=== PATIENT | female | born 1980 | race Caucasian/White ===

== ENCOUNTER → 2020-01-03 10:00 | Outpatient (CLI) | payer BC, SELFPAY ==
--- NOTE | 2020-01-03 10:04 | MM_ITS ---
PROCEDURE: MM DIG SCREENING MAMM BI W/CAD Digital Breast Tomosynthesis Included CLINICAL INDICATION: SCREENING There is a history of breast cancer patient's maternal and paternal grand aunt COMPARISON: This is a baseline screening exam, patient without complaints TECHNIQUE: Standard CC and MLO images and 3D Tomosynthesis was obtained. R2 CAD reviewed. FINDINGS: Prominent diffuse somewhat heterogenic fibroglandular densities are seen throughout both breasts. There is a possible asymmetric density deep to the nipple right breast. Nabor images of this lesion are somewhat indeterminate and I believe the patient should return for spot compression views and ultrasound for additional evaluation. There are no suspicious microcalcifications. IMPRESSION: Moderate heterogenic breast density with possible asymmetric lesion right breast BI-RAD Category: 0 Need Additional Imaging Evaluation FOLLOW-UP: IMM Immediate Follow-up Recommended (A letter has been sent to the patient regarding results of the study.) Dictated by: Dr. Armani Nolan MD 01/05/2020 10:06 Dr. Armani Nolan MD in [place] 01/05/2020 10:06
== END ==
PROVIDERS: PCP Family Medicine; Visit Provider Physician Assistant
DX: Z12.31 Encounter for screening mammogram for malignant neoplasm of breast (principal)
CPT/HCPCS: 77063; 77067

== ENCOUNTER → 2020-01-13 14:16 | Outpatient (CLI) | payer BC, SELFPAY ==
--- NOTE | 2020-01-13 14:24 | MM_ITS ---
PROCEDURE: MM DIG MAMM DX UNILAT RT CAD Digital Breast Tomosynthesis Included CLINICAL INDICATION: ABN MAMM COMPARISON: MG MM DIG SCREENING MAMM BI W/CAD from 01/03/2020 US US BREAST RT COMPLETE from 01/13/2020 TECHNIQUE: Standard CC and MLO images and 3D Tomosynthesis was obtained. R2 CAD reviewed. FINDINGS: No heterogenic fibroglandular densities are seen in the subareolar regions and central portions of the breast. The possible new lesion seen on recent mammogram of 01/03/2020 does not completely press out. Ultrasound performed the same date showed a benign-appearing cystic lesion at the 12 o'clock position mid breast measuring 0.6 by point by 0.5 cm with good acoustic enhancement and this appears to correspond in size and location to the density in question. Ultrasound exam showed additional benign-appearing cysts within the breast. IMPRESSION: Heterogenic breast density with ultrasound confirmation of benign-appearing cyst at the site of the asymmetric density in question feel no additional evaluation is indicated at this time BI-RAD Category: 2 Benign Finding(s) FOLLOW-UP: 1YR 1 Year Follow-up (A letter has been sent to the patient regarding results of the study.) Dictated by: Dr. Armani Nolan MD 01/17/2020 09:57 Dr. Armani Nolan MD in [place] 01/17/2020 09:57
--- NOTE | 2020-01-13 14:24 | US_ITS ---
PROCEDURE: US BREAST RT COMPLETE CLINICAL INDICATION: ABN MAMM COMPARISON: US BR US BREAST-RT COMPLETE W/AXILLA from 02/02/2015 FINDINGS: There is a small well-defined hypoechoic cystic lesion mid breast at the 12 o'clock position measuring 0.5 by 0.6 x 0.4 cm likely accounting for the the in question. Previous ultrasound 02/02/2015 showed a cystic lesion 12 o'clock position which was larger and showed partial septation and there likely has been interval partial decompression of this previously seen cyst. There is an additional oval hypoechoic cystic lesion at the 10 o'clock position outer breast with internal septations and debris measuring 1.4 by 1.3 x 0.4 cm and this is likely a complex cyst. There is a mildly dilated duct subareolar region. There are couple normal appearing nodes in the axilla. IMPRESSION: Benign-appearing cystic lesions as described above and I feel no additional evaluation is indicated Dictated by: Dr. Armani Nolan MD 01/17/2020 10:00 Dr. Armani Nolan MD in [place] 01/17/2020 10:00
== END ==
PROVIDERS: PCP Family Medicine; Visit Provider Family Medicine
DX: R92.8 Other abnormal and inconclusive findings on diagnostic imaging of breast (principal)
CPT/HCPCS: 76641; 77061; 77065; G0279

== ENCOUNTER → 2020-02-04 17:01 | Outpatient (CLI) | payer BC, SELFPAY ==
[2020-02-04 17:30] LABS: Basophils # 0.1 K/mm3 (0-0.2); Basophils % 0.6 % (0.1-2.0); Eosinophils # 0.2 K/mm3 (0.0-0.4); Eosinophils % 2.3 % (0.1-12.0); Hematocrit 41.4 % (37.0-47.0); Hemoglobin 14.6 g/dL (12.2-16.2); Lymphocytes # 2.4 K/mm3 (0.7-4.5); Lymphocytes % 24.3 % (10-50); Mean Corpuscular HGB Conc 35.2 g/dL (31.8-35.4); Mean Corpuscular Hemoglobin 30.3 pg (27.0-31.2); Mean Corpuscular Volume 86.2 fl (81-99); Mean Platelet Volume 7.5 fl (7.4-10.4); Monocytes # 0.4 K/mm3 (0.1-1.0); Monocytes % 3.8 % (1.7-9.3); Neutrophils # 6.8 K/mm3 (1.8-7.8); Neutrophils % 68.9 % (37.0-80.0); Platelet Count 267 K/mm3 (142-424); Red Cell Distribution Width 13.6 % (11.5-17.5); White Blood Count 9.9 K/mm3 (4.8-10.8)
[2020-02-04 17:54] LABS: Alanine Aminotransferase 15 U/L (12-78); Albumin Level 4.9 g/dl (3.5-5.0); Albumin/Globulin Ratio 1.8 (1.1-1.8); Alkaline Phosphatase 75 U/L (38-126); Aspartate Amino Transferase 21 U/L (14-36); Bilirubin,Total 0.6 mg/dl (0.2-1.3); Blood Urea Nitrogen 12 mg/dl (7-17); Carbon Dioxide 25 mmol/L (22.0-30.0); Chloride 102 mmol/L (98-107); Estimated Glomerular Filt Rate 79 ml/min (>60); GFR (African American) 96 ML/MIN (>60); Globulin 2.8 g/dL (1.3-3.2); Glucose 124 mg/dl (74-100); Phosphorous 4.2 mg/dl (2.5-4.5); Sodium 141 mmol/L (136-145); Total Protein,Serum 7.7 g/dl (6.3-8.2)
[2020-02-04 18:03] LABS: NT Pro Brain Natriuretic Pep. 37.3 pg/mL (0-125)
[2020-02-04 18:12] LABS: 25-OH Vitamin D, Total 36.5 ng/mL (30-100)
[2020-02-04 18:43] LABS: Vitamin B12 578 pg/mL (239-931)
== END ==
PROVIDERS: Visit Provider Family Medicine
DX: R06.02 Shortness of breath (principal); R00.2 Palpitations; R53.83 Other fatigue
CPT/HCPCS: 36415; 80053; 82306; 82607; 83735; 83880; 84100; 85025

== ENCOUNTER → 2020-02-09 13:18 | Outpatient (CLI) | payer BC, SELFPAY ==
--- NOTE | 2020-02-09 13:25 | CA_ITS ---
APPROVED REPORT EXAM: Comprehensive 2D, Doppler, and color-flow Echocardiogram [employer] Developer: Sarah Mullins RVT Ht: 5 ft 6 in Wt: 195lbs BSA: 1.98 BP: 128/78 mmHg Indications: SOA,MVP, DAYANNA'S 2D Dimensions LVOT 1.91 cm (M/F) 1.5-2.5 M-Mode Dimensions RVDd 2.21 cm (0.9-2.6) LA Diam 3.11 cm (1.9-4.0) LVDd 4.98 cm (3.5-5.7) Ao Diam 2.48 cm (2.0-3.7) LVDs 2.95 cm (3.5-5.7) IVSd 0.55 cm (0.6-1.1) PWd 0.57 cm (0.6-1.1) EF (Teich) 71.30% FS 40.80% EDV (Teich) 117.10 mL ESV (Teich) 33.60 mL LV Diastology E Decel Time 167.00 (160-240 msec) E/A Ratio 1.1 MED E' 14.90 (< 7 cm/sec) E'/MED E' Ratio 4.60 (>14) LAT E' 17.80 (<10 cm/sec) E/LAT E' Ratio 3.85 (>14) Mitral Valve MV E Max David. 69.00 (40-130 cm/s) MV A Velocity 60.00 (40-130 cm/s) E/A Ratio 1.15 MV Decel. Time 167.00 (160-240 ms) MV PHT 49.00 ms Pulmonary Valve PV Peak Velocity 95.00 (50-150 cm/s) Left Ventricle Left atrium is normal size, left ventricle is normal size, there is no concentric left ventricular hypertrophy, visually estimated ejection fraction 55% with no regional wall motion abnormality. Right Ventricle Right atrium and right ventricle are normal size and contractility. Aortic Valve Aortic valve is grossly normal, there is no aortic stenosis or aortic insufficiency. Mitral Valve Mitral valve is grossly normal, there is no mitral stenosis, there is trace mitral regurgitation, there is no obvious mitral valve prolapse seen in this study Tricuspid Valve Tricuspid valve grossly normal, there is trace tricuspid regurgitation. Tricuspid regurgitation jet velocity is inadequate for calculation of the right ventricular systolic pressure. Pulmonic Valve Pulmonic valve is poorly visualized. Great Vessels Aortic root is normal size. Pericardium No significant pericardial effusion noted. Conclusion 1. Normal left ventricular size, preserved left ventricular systolic function, visually estimated ejection fraction 55% with no regional wall motion abnormality, diastolic parameters are within normal range. 2. Trace mitral and tricuspid regurgitation, there is no obvious mitral valve prolapse seen in this study. 3. No significant pericardial effusion noted. Electronically signed by : Gino Pearce, 02/10/2020 13:44:10
== END ==
PROVIDERS: PCP Family Medicine; Visit Provider Family Medicine
DX: R06.02 Shortness of breath (principal); I34.1 Nonrheumatic mitral (valve) prolapse
CPT/HCPCS: 93306

== ENCOUNTER → 2021-02-07 08:01 | Outpatient (CLI) | payer BC, SELFPAY ==
--- NOTE | 2021-02-07 08:04 | MM_ITS ---
PROCEDURE INFORMATION: Exam: MG Bilateral Screening 3D Mammography Exam date and time: 02/07/2021 8:04 AM Age: 40 years old Clinical indication: Screening exam; No personal or family HX of malignancy TECHNIQUE: Imaging protocol: Bilateral screening tomosynthesis and 2D mammography including computer-aided detection (CAD) when performed. COMPARISON: 1. MG MM DIG MAMM DX UNILAT RT CAD 01/13/2020 2:28 PM 2. MG MM DIG SCREENING MAMM BI W/CAD 01/03/2020 10:22 AM FINDINGS: MAMMOGRAPHY: Breast composition: The breast tissue is heterogeneously dense, which may obscure small masses. Mass: None. Architectural distortion: None. Calcifications: No suspicious calcifications. Asymmetric density: None. Skin thickening: None. Axillary adenopathy: None. IMPRESSION: No mammographic evidence of malignancy. Annual screening is recommended unless otherwise clinically indicated. ASSESSMENT: BI-RADS Category 1: Negative
== END ==
PROVIDERS: PCP Family Medicine; Visit Provider Physician Assistant
DX: Z12.31 Encounter for screening mammogram for malignant neoplasm of breast (principal)
CPT/HCPCS: 77063; 77067

== ENCOUNTER 2022-02-27 18:39 | Emergency (ER) | payer BC, SELFPAY ==
[2022-02-27 19:04] LABS: Apearance,Urine Clear (Clear); Bilirubin,Urine Negative (Negative); Blood, Urine Negative (Negative); Color,Urine Dark Yellow (Yellow); Glucose,Urine (UA) Negative (Negative); Ketones,Urine Negative (Negative); PH,Urine 6.5 (5.0-8.5); Protein,Urine Negative (Negative); UTC Leukocyte Esterase,Urine Negative (Negative); UTC Nitrate,Urine Negative (Negative); Urobilinogen,Urine 0.2 EU/dl (0.2)
[2022-02-27 20:35] VITALS: BP 157/102; PULSE 74; RESP 20; TEMP 36.8; O2SAT 98; BMI 33.6
--- NOTE | 2022-02-27 20:56 | EXP.UTC ---
Discharge Plan Disposition Patient Disposition: Home, Self-Care Condition: Good Prescriptions Prescriptions: New phenazopyridine [Pyridium] 200 mg tablet 200 mg PO Q8H 2 Days Qty: 6 0RF nitrofurantoin monohyd/m-cryst [Macrobid] 100 mg capsule 100 mg PO Q12H 5 Days Qty: 10 0RF Rx Instructions: must administer with a meal/food No Action sertraline 100 mg tablet PO 30 Days Qty: 30 levothyroxine 50 mcg tablet PO 30 Days Qty: 30 Havrix (PF) 1,440 WILBER unit/mL syringe 1 ml IM ONCE Qty: 1 0RF Referrals Follow up/Referrals: Mehrdad Payne MD [Primary Care Provider] - See instructions Activity Restrictions/Add. Instructions Additional Instructions/Restrictions: Increase fluids. Water not Soda or Tea *Start antibiotic immediately and be sure to take as ordered for the FULL length of time although you should start to see improvement over the next 48 hours *Pyridium as needed Remember this medication will turn your urine . This is normal but it will stain what ever it gets on *You should not use Pyridium for more than 48 hours. If so , follow up with your primary physician to review urine culture and ensure that antibiotic is adequate for infection *Be SURE to follow up anytime for new or worsening symptoms with your family doctor. AND in 48 hours for urine culture results with your family doctor, if you do not have a doctor then you may call back to the [facility] for urine culture results and further treatment. We do recommend that you choose and establish care with a Primary Care Physician. ?AND follow up with them ?in 10-14 days to repeat UA to ensure infection is resolved and blood no longer present *Be sure to let your PCP know that we sent urine cultures from the [facility] so they can follow up to ensure that you area the on the correct antibiotic Call your doctor office and make appointment for 48 hours (2 days from today) ?to follow up and get the results of your urine culture and further treatment Clinical Impressions Clinical Impression: UTI (urinary tract infection) Qualifiers: Urinary tract infection type: site unspecified Hematuria presence: without hematuria Qualified Code(s): N39.0 - Urinary tract infection, site not specified Instructions Patient Instructions: Urinary Tract Infection, DI for Urinary Tract Infection (UTI), Nitrofurantoin Discharge ED Provider: Eleanor Page [facility] [place] HPI General Stated complaint: Burning when urination Mode of Arrival: Ambulatory Source of Information: Patient Limitations: No Limitations Time Seen by Provider: 02/27/22 20:56 Description of Symptoms (Recalled from Triage Doc. by RN): PATIENT C/O URINARY FREQUENCY, BLADDER PRESSURE AND IRRITATION WITH URINATION SINCE FRIDAY HEENT Symptoms (Recalled from RN notes): No Resp Symptoms (Recalled from RN notes): No Skin Symptoms (Recalled from RN notes): No MS Symptoms (Recalled from RN notes): No Functional Status (Recalled from RN notes): WNL History of Present Illness Provider Complaint: Patient states that she started on Friday with UTI symptoms, states that she has been having burning with urination and feeling of urgency and frequency States that she has been urinating more often than normal and feels like it did when she had a UTI before Related Data Home Medications Medication Instructions Recorded Confirmed levothyroxine 50 mcg tablet PO 30 days ##30 11/19/17 sertraline 100 mg tablet PO 30 days ##30 11/19/17 Previous Rx's Medication Instructions Recorded nitrofurantoin 100 mg PO Q12H 5 days #10 caps 02/27/22 monohydrate/macrocrystals 100 mg capsule (Macrobid) phenazopyridine 200 mg tablet 200 mg PO Q8H pain 2 days #6 tabs 02/27/22 (Pyridium) Allergies Allergy/AdvReac Type Severity Reaction Status Date / Time cefaclor [From Ceclor] Allergy Verified 02/27/22 20:47 cephalexin [From Keflex] Allergy Verified 02/27/22 20:47 Penicillins Allergy Verified 02/27/22 20:47 Sulfa (Sulf
[2022-02-27 21:04] VITALS: BP 156/99; PULSE 74; RESP 20; TEMP 36.8; O2SAT 98
== END 2022-02-27 21:09 | disposition home or self-care (01) ==
PROVIDERS: Emergency Provider Nurse Practitioner; PCP Family Medicine
DX: N39.0 Urinary tract infection, site not specified (principal)
CPT/HCPCS: 81003; 87086; 99212; G0463

== ENCOUNTER → 2022-04-09 13:17 | Outpatient (CLI) | payer BC, SELFPAY ==
--- NOTE | 2022-04-09 13:21 | MM_ITS ---
PROCEDURE INFORMATION: Exam: MG Bilateral Screening 3D Mammography Exam date and time: 04/09/2022 1:20 PM Age: 41 years old Clinical indication: Screening examination TECHNIQUE: Imaging protocol: Bilateral Screening tomosynthesis and 2D mammography including computer-aided detection (CAD) when performed. COMPARISON: 1. MG MM DIG SCREENING MAMM BI W/CAD 02/07/2021 8:19 AM 2. MG MM DIG MAMM DX UNILAT RT CAD 01/13/2020 2:28 PM FINDINGS: MAMMOGRAPHY: Breast composition: The breasts are heterogeneously dense, which may obscure small masses. Mass: None. Architectural distortion: None. Calcifications: No suspicious calcifications. Asymmetric density: None. Skin thickening: None. Axillary adenopathy: None. IMPRESSION: No mammographic evidence of malignancy. Annual screening is recommended unless otherwise clinically indicated. ASSESSMENT: BI-RADS Category 1: Negative
== END ==
PROVIDERS: PCP Family Medicine; Visit Provider Physician Assistant
DX: Z12.31 Encounter for screening mammogram for malignant neoplasm of breast (principal)
CPT/HCPCS: 77063; 77067

== ENCOUNTER 2023-04-14 09:39 | Outpatient (CLI) | payer BC, SELFPAY ==
--- NOTE | 2023-04-14 09:43 | MM_ITS ---
PROCEDURE INFORMATION: Exam: MG Bilateral Screening 3D Mammography Exam date and time: 04/14/2023 9:39 AM Age: 42 years old Clinical indication: Screening mammogram TECHNIQUE: Imaging protocol: Bilateral Screening tomosynthesis and 2D mammography including computer-aided detection (CAD) when performed. COMPARISON: 1. MG MM DIG SCREENING MAMM BI W/CAD 04/09/2022 1:20 PM 2. MG MM DIG SCREENING MAMM BI W/CAD 02/07/2021 8:19 AM 3. MG MM DIG MAMM DX UNILAT RT CAD 01/13/2020 2:28 PM 4. MG MM DIG SCREENING MAMM BI W/CAD 01/03/2020 10:22 AM FINDINGS: MAMMOGRAPHY: Breast composition: The breast is heterogeneously dense, which may obscure small masses. Mass: None. Architectural distortion: No new or suspicious architectural distortion. Calcifications: No new or suspicious calcifications are present Asymmetric density: No new or suspicious asymmetric density is present Skin thickening: None. Axillary adenopathy: None. IMPRESSION: No mammographic evidence of malignancy. Recommend annual screening mammography unless otherwise clinically indicated. ASSESSMENT: BI-RADS category 1: Negative
== END 2023-04-14 23:59 ==
LOC: RAD 09:39
PROVIDERS: PCP Family Medicine; Visit Provider Physician Assistant
DX: Z12.31 Encounter for screening mammogram for malignant neoplasm of breast (principal)
CPT/HCPCS: 77063; 77067

== ENCOUNTER 2023-05-27 13:16 | Outpatient (POV) | payer BC, SELFPAY | END 2023-05-27 23:59 | disposition home or self-care (01) | LOC: SC 13:16 | PROVIDERS: PCP Family Medicine; Visit Provider Dermatology | DX: Z00.00 Encounter for general adult medical examination without abnormal findings (principal) ==

== ENCOUNTER 2024-05-06 13:18 | Outpatient (CLI) | payer BC, SELFPAY ==
--- NOTE | 2024-05-06 13:21 | MM_ITS ---
PROCEDURE INFORMATION: Exam: MG Bilateral Screening 3D Mammography Exam date and time: 05/06/2024 1:24 PM Age: 43 years old Clinical indication: Screening examination TECHNIQUE: Imaging protocol: Bilateral Screening tomosynthesis and 2D mammography including computer-aided detection (CAD) when performed. COMPARISON: 1. MG MM DIG SCREENING MAMM BI W/CAD 04/14/2023 9:39 AM 2. MG MM DIG SCREENING MAMM BI W/CAD 04/09/2022 1:20 PM FINDINGS: MAMMOGRAPHY: Breast composition: The breasts are heterogeneously dense, which may obscure small masses. Mass: None. Architectural distortion: None. Calcifications: No suspicious calcifications. Asymmetric density: None. Skin thickening: None. Axillary adenopathy: None. IMPRESSION: No mammographic evidence of malignancy. Annual screening is recommended unless otherwise clinically indicated. ASSESSMENT: BI-RADS Category 1: Negative.
== END 2024-05-06 23:59 | disposition home or self-care (01) ==
LOC: RAD 13:19
PROVIDERS: PCP Family Medicine; Visit Provider Family Medicine
DX: Z12.31 Encounter for screening mammogram for malignant neoplasm of breast (principal)
CPT/HCPCS: 77063; 77067